=== PATIENT | male | born 1970 | race Caucasian/White ===

== ENCOUNTER 2017-09-01 08:15 | Outpatient (RCR) | payer BC | END 2017-09-03 08:15 | LOC: WSPT 08:15 | DX: Z47.89 Encounter for other orthopedic aftercare (principal) ==

== ENCOUNTER 2017-11-09 07:00 | Outpatient (RCR) | payer BC | END 2017-11-09 07:05 | disposition home or self-care (01) | LOC: WSPT 07:00 | DX: Z47.89 Encounter for other orthopedic aftercare (principal) ==

== ENCOUNTER 2022-01-21 07:47 | Inpatient (IN) | payer BC ==
[~2022-01-21] VITALS: Ht 170.2 cm; Wt 83.8 kg
[2022-01-21 08:30] LABS: COLLECTION METHOD CLEAN CATCH
[2022-01-21 08:34] LABS: BASO # 0.1 K/mm3 (0.0-0.2); BASO % 0.4 % (0.0-2.0); EOS # 0.1 K/mm3 (0.0-0.7); EOS % 1.1 % (0.0-4.0); GRAN # 9.4 K/mm3 (1.4-6.5); GRAN % 81.8 % (42.2-75.2); HEMATOCRIT 49.1 % (42.0-52.0); HEMOGLOBIN 16.9 g/dl (13.5-18.0); LYMPH % 8.2 % (20.0-51.0); MEAN CELL VOLUME 97 fl (80.0-100.0); MEAN CORPUSCULAR HEMOGLOBIN 33 pg (27-31); MEAN CORPUSCULAR HGB CONC 34 g/dl (33.0-37.0); MONO # 0.9 K/mm3 (0.1-0.6); MONO % 8.1 % (1.7-9.3); PLATELET COUNT 134 K/mm3 (130-400); RED BLOOD COUNT 5.08 M/mm3 (4.20-5.60); REDCELL DISTRIBUTION WIDTH-CV 12.6 % (11.5-14.5)
[2022-01-21 08:37] LABS: PH 5 (5-8); SQUAMOUS EPITHELIAL 0-2 /hpf (0-10); URINE APPEARANCE Clear (CLEAR/HAZY); URINE BACTERIA None Seen /hpf (NONE SEEN); URINE BILIRUBIN Negative (NEGATIVE); URINE BLOOD Negative (NEGATIVE); URINE COLOR Yellow (YELLOW); URINE GLUCOSE 3+ (NEGATIVE); URINE KETONE 2+ (NEGATIVE); URINE LEUKOCYTE ESTERASE Negative (NEGATIVE); URINE NITRATE Negative (NEGATIVE); URINE PROTEIN(semi-quant) Negative (NEGATIVE); URINE RBC None Seen /hpf (0-2); URINE UROBILINOGEN Negative (NEGATIVE)
[2022-01-21 08:54] LABS: ALBUMIN 4.6 gm/dL (3.5-5.0); BILIRUBIN,TOTAL 2.4 mg/dL (0.2-1.2); CALCIUM 9.1 mg/dL (8.4-10.2); CREATININE, serum 1.11 mg/dL (0.72-1.25); POTASSIUM 4.1 mmol/L (3.5-4.5); TOTAL PROTEIN 7.7 gm/dL (6.2-8.1)
[2022-01-21] MEDS ORDERED: OZEMPIC0.25 MG/0. SQ (10:01)
[2022-01-21] MEDS ORDERED: JANUVIA 100MG100 MG PO (10:02)
[2022-01-21] MEDS ORDERED: COZAAR 50MG50 MG/TAB PO (10:10)
[2022-01-21] MEDS ORDERED: ELIMITE TOP (10:11)
[2022-01-21] MEDS ORDERED: VALTREX1 GM PO (10:11)
[2022-01-21] MEDS ORDERED: SINGULAIR 110 MG/TAB (10:11)
[2022-01-21] MEDS ORDERED: DESCOVY 200-251 EACH PO (10:12)
[2022-01-21] MEDS ORDERED: DEPO-TESTOS200 MG/M1 IM (10:12)
[2022-01-21] MEDS ORDERED: SYNTHROID0.2 MG/TAB (10:14)
[2022-01-21] MEDS ORDERED: OMEGA-3 1000 MG1 CAP PO (10:15)
[2022-01-21] MEDS ORDERED: JARDIANCE10 (10:15)
--- NOTE | 2022-01-21 12:15 | NUR ---
PT JUST ARRIVED TO UNIT. HANDED OFF PT TO SHARON FERNANDEZ RN.
[2022-01-21 12:19] VITALS: BP 112/71; PULSE 93; TEMP 99.1
--- NOTE | 2022-01-21 13:44 | NUR ---
Patient arrived surgical room 349 from ER around 12:30 pm. Patient A/Ox4. Patient reports feeling dehydrated and having severe abdominal pain 9/10 all over the the abdomen area. PRN Dilaudid given per JAN. Called Dr. Gipson and received order to start LR. LR started at 150ml/hr via right forearm IV site. IV site C/D/I. Patient denies N/V at this time. VS stable. Oriented patient to the room. Patient independent in the room. NPO maintained for scheduled surgery this afternoon. Call light in reach. Will continue to monitor.
--- NOTE | 2022-01-21 15:55 | NUR ---
Staff came from OR and transferred patient down to OR for procedure at 15:35 pm.
[2022-01-21 18:24] VITALS: BP 93/67; PULSE 94; TEMP 98.6
--- NOTE | 2022-01-21 18:34 | NUR ---
Patient came back to the room from surgery at 18:20 pm. Abdominal lap site x3 C/D/I. Patient states he is feeling much better. Patient sitting up in bed and eating dinner at this time. Call light in reach. Will give report to loss prevention officer nurse.
[2022-01-21 19:24] VITALS: BP 107/70; PULSE 85; TEMP 98.3
--- NOTE | 2022-01-21 19:30 | NUR ---
Pt. sitting up in bed with partner at bedside. Pt. is A&OX3, assessment complete. IV to lt. forearm patent, IV fluids infusing per orders. Abd. incisions x3 well approximated. Pt. reports pain at a 2 on pain scale. Pt. denies need for pain medication at this time. Call light within reach.
[2022-01-21 20:24] VITALS: BP 106/71; PULSE 92
[2022-01-21 20:48] VITALS: BP 106/69; PULSE 84; TEMP 98.3
[2022-01-22 00:58] VITALS: BP 99/60; PULSE 86; TEMP 98.4
[2022-01-22 04:40] VITALS: BP 108/61; PULSE 70; TEMP 98.1
[2022-01-22 08:51] VITALS: BP 121/69; PULSE 72; TEMP 98.5
--- NOTE | 2022-01-22 09:14 | NUR ---
PT ASSESSED. NO SOMPLAINTS OFP AIN OR DYSPNEA. NO SIGNS OR SYMPTOMS OF DISTRESS. CALL LIGHT WITHIN REACH.
[2022-01-22] MEDS ORDERED: NORCO 325 MG-51 TAB PO (10:20)
--- NOTE | 2022-01-22 11:18 | NUR ---
PT DISCHARGE TEACHING COMPLETE. IV REMOVED. INFORMATIOPN GIVEN ABOUT FOLLOW UP APPOINTMENTS AND MEDICATIONS. ALL QUESTIONS ANSWERED. PT ESCORTED OUT BY FIELD PARTY MANAGER.
--- NOTE | 2022-01-22 11:24 | NUR ---
Initial visit; Patient thanked Screener Perfumer for looking in on him and offering God's blessings and keeping him in her prayers.
== END 2022-01-22 11:31 | disposition home or self-care (01) | DRG 342 ==
LOC: COL.ER 07:47 → SURG 10:53
PROVIDERS: Student in an Organized Health Care Education/Training Program; ADMIT Surgery
PROC: 0DTJ4ZZ Resection of Appendix, Percutaneous Endoscopic Approach (ICD-10-PCS; principal; 2022-01-21 15:00)
DX: K35.80 Unspecified acute appendicitis (principal); K50.90 Crohn's disease, unspecified, without complications; E11.9 Type 2 diabetes mellitus without complications; E03.9 Hypothyroidism, unspecified; I10 Essential (primary) hypertension; Z23 Encounter for immunization
CPT/HCPCS: J1100; J1170; J1885; J2405; J2543; J2704; J3010; J7030; J7120; Q9967